=== PATIENT | female | born 1975 | race Two or more races ===

== ENCOUNTER 2021-11-12 05:45 | Day surgery (SDC) | payer OTHER ==
[2021-11-12] MEDS ORDERED: NAPR500T14 PO (14:40)
[2021-11-12] MEDS ORDERED: MORGIDOX100 MG PO (14:40)
== END 2021-11-12 16:45 | disposition home or self-care (01) ==
LOC: CIR.AMB 05:45
PROVIDERS: ATTEND Obstetrics & Gynecology
DX: D25.0 Submucous leiomyoma of uterus (principal); Z20.822 Contact with and (suspected) exposure to COVID-19